=== PATIENT | female | born 1955 | race Native Hawaiian/Other Pacific Islander ===

== ENCOUNTER 2019-06-08 18:24 | Outpatient (CLI) | payer OTHER ==
[2019-06-08 20:04] LABS: PLATELET COUNT 205 K/uL (152-353)
== END 2019-06-08 20:11 | disposition home or self-care (01) ==
LOC: LAB 18:24
PROVIDERS: Nurse Practitioner Family
DX: I10 Essential (primary) hypertension (principal); E03.8 Other specified hypothyroidism; Z79.899 Other long term (current) drug therapy
CPT/HCPCS: 83036; 84439; 84443; 85027

== ENCOUNTER 2023-11-11 13:44 | Outpatient (CLI) | payer OTHER, MEDICARE | END 2023-11-11 19:22 | disposition home or self-care (01) | LOC: RAD 13:44 | PROVIDERS: ATTEND Nurse Practitioner Family | DX: Z13.820 Encounter for screening for osteoporosis (principal); N95.8 Other specified menopausal and perimenopausal disorders ==